=== PATIENT | male | born 1980 | race Caucasian/White ===

== ENCOUNTER → 2020-09-30 | Outpatient (CLI) | payer OTHER ==
--- NOTE | 2020-09-30 13:15 | P.STRESS ---
- Stress Test Note Stress Test Results/Findings: Exam Performed: stress test Exam Date: 09/30/20 Reason for Exam: CHEST PAIN Height: 6 ft 2 in Weight: 98.2 kg Protocol: HIMA TREADMILL Stage: 4 Duration of Exercise: 12:00 MINUTES Resting Heart Rate: 83 Resting Blood Pressure: 144/88 Maximum Achieved Heart Rate: 179 Maximum Achieved Blood Pressure: 156/80 85% PMHR: 152 100% PMHR: 179 METS: 12.1 Technologist Comment: Stress Test Results/Findings: Patient underwent exercise stress EKG with a Hima protocol treadmill stress test. Patient exercised into Stage 4 for a total of 12 minutes reaching a total of 12.1 METS. Patient's maximum heart rate was 179 which represented 100 % age- predicted maximum heart rate. Stress EKG findings: At baseline patient's EKG showed normal sinus rhythm, normal axis, no significant ST or T-wave abnormalities. At peak exercise, EKG showed no significant change from baseline rare PACs. Conclusions: 1. Normal EKG response to exercise without evidence of inducible ischemia. 2. Excellent exercise capacity.
--- NOTE | 2020-09-30 13:53 | US ---
EXAMINATION TYPE: US thyroid st tissue head/neck DATE OF EXAM: 09/30/2020 COMPARISON: NONE CLINICAL HISTORY: E04.9 NONTOXIC GOITER. Not on thyroid meds. GLAND SIZE: Right Lobe: 5.2 x 2.2 x 2.0 cm Overall Parenchyma: heterogenous Left Lobe: 4.6 x 2.3 x 1.8 cm Overall Parenchyma: heterogeneous Isthmus Thickness: 0.4 cm NODULES RIGHT: # of nodules measured on right: 0 LEFT: # of nodules measured on left: 0 ISTHMUS: # of nodules measured in the isthmus: 0 Bilateral neck scanned, no evidence of lymphadenopathy. IMPRESSION: Thyromegaly correlate for thyroiditis.
== END ==
LOC: RADNMMAIN 08:02
PROVIDERS: ATTEND Family Medicine
DX: E01.0 Iodine-deficiency related diffuse (endemic) goiter (principal); R07.9 Chest pain, unspecified
CPT/HCPCS: 76536; 93017

== ENCOUNTER → 2021-06-25 | Outpatient (CLI) | payer OTHER ==
--- NOTE | 2021-06-25 09:58 | US ---
EXAMINATION TYPE: US scrotum with doppler. Grayscale and color Doppler Duplex imaging performed of ct dukes scrotum. DATE OF EXAM: 06/25/2021 COMPARISON: NONE CLINICAL HISTORY: N50.89 Testicular mass. EXAM MEASUREMENTS: TESTICLES: Right Testicle: 3.8x3.3x2.5 cm Left Testicle: 4.6x3.4x2.7 cm EPIDIDYMIS HEAD: Right Epididymis: 0.9 cm Left Epididymis: 0.8 cm Doppler performed to assess for testicular vascularity; good bilateral color flow and waveforms are s een. There is no evidence of testicular torsion. Presence of hydroceles: Mild Presence of varicoceles: Ni Palpable area mid testicles, between right and left testicle and inferior to piercing. Complex fluid collection with debris measuring 7.5x3.1x3.1cm. Has had piercing for over 20 years. Findings may be r elated to hydrocele. Both Infection could be considered, this is atypical for an acute abscess. Corre late with the patient's clinical symptoms. IMPRESSION: 1. Complex fluidlike collection between the testicles. Hydrocele and old infection could be consider ed within the differential.
== END | disposition home or self-care (01) ==
LOC: RADUSWWP 09:28
PROVIDERS: ATTEND Family Medicine
DX: N50.89 Other specified disorders of the male genital organs (principal)
CPT/HCPCS: 76870; 93975